=== PATIENT | male | born 1940 | race Caucasian/White ===

== ENCOUNTER 2024-05-04 11:24 | Inpatient (IN) | payer BC, MEDICARE, OTHER ==
[~2024-05-04] VITALS: Ht 167.6 cm; Wt 83.9 kg
[2024-05-04] MEDS ORDERED: IOHEXOL-350 100 ML VIAL IV ONE (11:39)
[2024-05-04] MEDS ORDERED: IV NS 0.9% 250 ML IV ONE (11:39)
[2024-05-04] MEDS ORDERED: CT SWABBABLE VALVE TRANS SET 1 EA INFUS.SET MC ONE (11:39)
[2024-05-04 11:51] LABS: BASOPHILS % (AUTO) 0.4 % (0.0-2.0); EOSINOPHILS # (AUTO) 0.2 K/uL (0.0-0.7); EOSINOPHILS % (AUTO) 1.9 % (0.0-6.0); HEMATOCRIT 47 % (39-51); LYMPHOCYTES # (AUTO) 1.3 K/uL (0.8-4.8); LYMPHOCYTES % (AUTO) 14.2 % (20.0-44.0); MEAN CORPUSCULAR HEMOGLOBIN 31 PG (26.0-33.0); MEAN CORPUSCULAR HGB CONC 34 g/dl (31.0-36.0); MEAN CORPUSCULAR VOLUME 90 fL (80-96); MONOCYTES # (AUTO) 0.8 K/uL (0.1-1.30); MONOCYTES % (AUTO) 8.3 % (2.0-12.0); NEUTROPHILS # (AUTO) 7.1 K/uL (1.8-8.9); NEUTROPHILS % (AUTO) 75.2 % (43.0-81.0); PLATELET COUNT (AUTO) 152 K/uL (150-450); RED BLOOD CELL COUNT(AUTO) 5.22 MIL/uL (4.5-6.0); RED CELL DISTRIBUTION WIDTH 13.9 % (11.5-15.0); WHITE BLOOD COUNT (AUTO) 9.4 K/uL (4.3-11.0)
[2024-05-04 12:01] LABS: CALCIUM, SERUM 9.2 mg/dL (8.5-10.1); CARBON DIOXIDE 28 mmol/L (21-32); CHLORIDE 107 mmol/L (98-107); CREATININE 1.1 mg/dL (0.6-1.3); GLUCOSE 99 mg/dL (74-106); POTASSIUM 4.1 mmol/L (3.5-5.1); SODIUM SERUM 144 mmol/L (136-145); UREA NITROGEN, BLOOD 16 mg/dL (7-18)
[2024-05-04] MEDS: ASPIRIN EC 325 MG TABLET.DR PO ONE (12:30)
[2024-05-04 12:53] LABS: INR 1.02 (0.91-1.10); PARTIAL THROMBOPLASTIN TIME 30.2 SEC (24.3-34.3); PROTHROMBIN TIME 10.8 SECS (9.2-11.1)
[2024-05-04] MEDS ORDERED: ASPI-1420 PO (13:06)
[2024-05-04] MEDS ORDERED: ATOR40TA PO (13:06)
[2024-05-04] MEDS ORDERED: ASPIRIN 325 MG TABLET ONE (13:21)
[2024-05-04] MEDS ORDERED: ASPIRIN EC 325 MG TABLET.DR PO ONE (13:25)
[2024-05-04] MEDS ORDERED: ONDANSETRON HCL/PF 4 MG/2 ML VIAL IVP PRN (15:30)
[2024-05-04] MEDS ORDERED: ACETAMINOPHEN 325 MG TABLET PO PRN (15:30)
[2024-05-04] MEDS: ATORVASTATIN 40 MG TABLET PO SCH (16:15)
[2024-05-04] MEDS: ENOXAPARIN SODIUM 80 MG/0.8 ML DISP.SYRIN SQ SCH (16:15)
[2024-05-04 20:00] VITALS: BP 125/79; TEMP 97.5; O2SAT 95
[2024-05-05] VITALS: BP_SYST 123; BP_SYST 13; BP_DIAS 79; TEMP 97.6; O2SAT 95
[2024-05-05 04:00] VITALS: BP 125/80; TEMP 97.5; O2SAT 95
[2024-05-05 06:47] LABS: BASOPHILS % (AUTO) 0.5 % (0.0-2.0); EOSINOPHILS # (AUTO) 0.3 K/uL (0.0-0.7); EOSINOPHILS % (AUTO) 4.6 % (0.0-6.0); HEMATOCRIT 45 % (39-51); HEMOGLOBIN 15.1 g/dL (13.5-17.5); LYMPHOCYTES # (AUTO) 1.2 K/uL (0.8-4.8); MEAN CORPUSCULAR HEMOGLOBIN 30 PG (26.0-33.0); MEAN CORPUSCULAR HGB CONC 33 g/dl (31.0-36.0); MEAN CORPUSCULAR VOLUME 89 fL (80-96); MONOCYTES # (AUTO) 0.6 K/uL (0.1-1.30); MONOCYTES % (AUTO) 8.1 % (2.0-12.0); NEUTROPHILS % (AUTO) 69.8 % (43.0-81.0); PLATELET COUNT (AUTO) 152 K/uL (150-450); RED BLOOD CELL COUNT(AUTO) 5.06 MIL/uL (4.5-6.0); RED CELL DISTRIBUTION WIDTH 13.8 % (11.5-15.0); WHITE BLOOD COUNT (AUTO) 7.1 K/uL (4.3-11.0)
[2024-05-05 06:57] LABS: CALCIUM, SERUM 8.8 mg/dL (8.5-10.1); CARBON DIOXIDE 26 mmol/L (21-32); CHLORIDE 107 mmol/L (98-107); CREATININE 1.1 mg/dL (0.6-1.3); GLUCOSE 94 mg/dL (74-106); MAGNESIUM 1.9 mg/dL (1.8-2.4); PHOSPHORUS 3.6 mg/dL (2.5-4.9); SODIUM SERUM 143 mmol/L (136-145); UREA NITROGEN, BLOOD 18 mg/dL (7-18)
[2024-05-05 07:06] LABS: CHOLESTEROL 106 mg/dL (<200); HDL CHOLESTEROL 46 mg/dL (40-60); LDL 47 mg/dL (0-99); TRIGLYCERIDES 80 mg/dL (30-150)
[2024-05-05 07:30] VITALS: BP 117/76; TEMP 97.5; O2SAT 98
[2024-05-05 07:51] LABS: APPEARANCE,URINE CLEAR (CLEAR); BILIRUBIN,URINE NEGATIVE (NEGATIVE); BLOOD, URINE NEGATIVE Ery/uL (NEGATIVE); COLOR,URINE YELLOW (YELLOW); KETONES,URINE NEGATIVE (NEGATIVE); LEUKOCYTE ESTERASE ,URINE TRACE (NEGATIVE); NITRITE, URINE NEGATIVE (NEGATIVE); PROTEIN,URINE NEGATIVE (NEGATIVE); UGLUCOSE NEGATIVE (NEGATIVE)
[2024-05-05 07:52] LABS: ADD URINE CULTURE NO; BACTERIA,URINE Few /HPF (None Seen); RBC,URINE 0-2 /HPF (0-2); SQUAMOUS EPITHELIAL CELL,UR Rare /HPF (None Seen)
[2024-05-05 07:57] LABS: AMPHETAMINE, URINE NEGATIVE (NEGATIVE); BARBITURATE, URINE NEGATIVE (NEGATIVE); BENZODIAZEPINE, URINE NEGATIVE (NEGATIVE); CANNABINOID, URINE NEGATIVE (NEGATIVE); COCCAINE, URINE NEGATIVE (NEGATIVE); OPIATE, URINE NEGATIVE (NEGATIVE); PHENCYCLIDINE SCREEN,URINE NEGATIVE (NEGATIVE)
[2024-05-05] MEDS: ASPIRIN EC 81 MG TABLET.DR PO SCH (08:21)
[2024-05-05] MEDS: CLOPIDOGREL BISULFATE 75 MG TABLET PO SCH (08:21)
[2024-05-05] MEDS: DILTIAZEM HCL CD 240 MG PO SCH (08:21)
[2024-05-05 16:00] VITALS: BP 111/80; TEMP 97.1; O2SAT 97
[2024-05-05 16:31] LABS: THYROID STIMULATING HORMONE 1.26 uIU/mL (0.358-3.74)
[2024-05-05 20:18] VITALS: BP 117/70; TEMP 97.9; O2SAT 96
[2024-05-06 00:09] VITALS: BP 111/67; TEMP 98.2; O2SAT 95
[2024-05-06 04:10] VITALS: BP 127/83; TEMP 97.5; O2SAT 95
[2024-05-06 08:00] VITALS: BP 116/67; TEMP 94.5; O2SAT 98
[2024-05-06 09:11] VITALS: BP 116/67
[2024-05-06] MEDS ORDERED: CLOP75TA15 PO (10:51)
[2024-05-07 01:10] LABS: FOLIC ACID 16.3 ng/mL (>3.0)
== END 2024-05-06 14:30 | disposition home or self-care (01) | DRG 69 ==
LOC: ER 11:35 → ICU 13:48 → TRANSITION 14:29 → TELE 15:44
PROVIDERS: ADMIT Nurse Practitioner Acute Care; ATTEND Nurse Practitioner Acute Care
DX: G45.9 Transient cerebral ischemic attack, unspecified (principal); I21.4 Non-ST elevation (NSTEMI) myocardial infarction; G25.0 Essential tremor; R47.1 Dysarthria and anarthria; R29.700 NIHSS score 0; I25.2 Old myocardial infarction; Z79.82 Long term (current) use of aspirin; Z20.822 Contact with and (suspected) exposure to COVID-19
CPT/HCPCS: 36415; 70450-TC; 70496-TC; 70498-TC; 80048-TC; 80061-TC; 81001; 82607-TC; 82962-TC; 83735-TC; 83921; 84100-TC; 84443-TC; 84484-TC; 85025-TC; 85730-TC; 93307-TC; 97116-TC; 97530-TC; G0378; J1650; J7050; Q9967